=== PATIENT | female | born 1970 | race American Indian/Alaskan Native ===

== ENCOUNTER 2017-03-27 15:28 | Emergency (ER) | payer MEDICARE, OTHER ==
[2017-03-27 15:29] VITALS: BMI 28.1
[2017-03-27 15:38] VITALS: TEMP 98
[2017-03-27] MEDS ORDERED: Naproxen 550 mg Tab PO STA (16:51)
--- NOTE | 2017-03-27 16:54 | C.PDOC ---
History Of Present Illness Patient presents to ED c/o sore throat, swelling of "thing in the back of her throat", white tongue since yesterday. Patient denies fever, injuries, runny nose, ear pain, rash, sensation of throat closing up. She also admits to mild nonproductive cough. Time Seen by Provider: 03/27/17 16:05 Chief Complaint (Nursing): ENT Problem History Per: Patient History/Exam Limitations: None Onset/Duration Of Symptoms: Days Current Symptoms Are (Timing): Still Present Symptoms Have Been: Continuous Severity: Mild Past Medical History Reviewed: Historical Data, Nursing Documentation, Vital Signs Vital Signs: Last Vital Signs Temp 98 F 03/27/17 15:34 Pulse 75 03/27/17 17:17 Resp 18 03/27/17 17:17 BP 122/74 03/27/17 17:17 Pulse Ox 97 03/27/17 17:17 - Medical History PMH: COPD, Gastritis Surgical History: Endoscopy - [facility] Procedures CLOSED ENDOSCOPIC BIOPSY OF LARGE INTESTINE (05/06/15) COLONOSCOPY (05/29/13) ESOPHAGOGASTRODUODENOSCOPY [EGD] W/CLOSED BIOPSY (05/05/15) Family History: States: No Known Family Hx - Social History Hx Alcohol Use: No Hx Substance Use: No - Immunization History Hx Tetanus Toxoid Vaccination: No Hx Influenza Vaccination: No Hx Pneumococcal Vaccination: No Review Of Systems Except As Marked, All Systems Reviewed And Found Negative. Constitutional: Negative for: Fever, Chills ENT: Positive for: Throat Pain. Negative for: Nose Congestion Cardiovascular: Negative for: Chest Pain, Palpitations Respiratory: Positive for: Cough. Negative for: Shortness of Breath Gastrointestinal: Negative for: Nausea, Vomiting, Diarrhea Skin: Negative for: Rash Physical Exam - Physical Exam Appears: Well, Non-toxic, No Acute Distress, Other (speaking in full sentences) Skin: Normal Color, Warm, Dry, No Rash Oral Mucosa: Moist Tongue: Normal Appearing, Other (no thrush noted, no tongue lesions ) Lips: Normal Appearing, No Lesions Throat: No Erythema, No Exudate, No Drooling, Other (uvula midline, mildly swollen) Neck: Normal, Normal ROM, Supple Lymphatic: No Adenopathy, Other (thyroid nontender and normal in size) Cardiovascular: Rhythm Regular Respiratory: Normal Breath Sounds, No Rales, No Rhonchi, No Wheezing Neurological/Psych: Oriented x3 ED Course And Treatment O2 Sat by Pulse Oximetry: 98 (RA) Pulse Ox Interpretation: Normal Progress Note: Patient given PO Naprosyn, Prednisone for uvulitis/viral syndrome. She was given rxs for same + tessalon, and instructed to follow up with PMD/clinic in 1-2 days. She understands she should return to ED immediately if symptoms worsen. Reevaluation Time: 17:10 Reassessment Condition: Improved Disposition Counseled Patient/Family Regarding: Diagnosis, Need For Followup, Rx Given - Disposition Referrals: Deshawn Lai MD [Staff Provider] - Disposition: HOME/ ROUTINE Disposition Time: 17:10 Condition: STABLE Additional Instructions: FOLLOW UP WITH YOUR DOCTOR/CLINIC IN 1-2 DAYS USE MEDICATIONS DIRECTED RETURN TO ER IF SYMPTOMS WORSEN Prescriptions: Benzonatate [Tessalon Perles] 100 mg PO BID PRN #15 sgl PRN Reason: Cough Naproxen [Naprosyn Tab] 375 mg PO BID PRN #20 tab PRN Reason: pain predniSONE [predniSONE Tab] 40 mg PO DAILY #6 tab Instructions: Uvulitis (ED) Print Language: GUYANESE - POA Present On Arrival: None - Clinical Impression Clinical Impression: Uvulitis, Viral pharyngitis
[2017-03-27] MEDS ORDERED: Naproxen 550 mg Tab PO ONE (16:59)
[2017-03-27 17:18] VITALS: BP 122/74; PULSE 75; RESP 18
[2017-03-27 18:14] VITALS: O2SAT 98
== END 2017-03-27 17:20 | disposition home or self-care (01) ==
LOC: C.ER 15:28
DX: K12.2 Cellulitis and abscess of mouth (principal); J02.8 Acute pharyngitis due to other specified organisms

== ENCOUNTER 2017-04-18 14:44 | Emergency (ER) | payer MEDICARE, OTHER ==
[2017-04-18 14:47] VITALS: BMI 28.1
[2017-04-18 15:00] VITALS: RESP 20; TEMP 98
--- NOTE | 2017-04-18 15:23 | C.PDOC ---
History Of Present Illness Patient is a 47 y/o female that presents to the emergency department for evaluation of cough with yellow-brown sputum, congestion, chest discomfort, sore throat, and body aches for the last few days. Patient reports having pain to right side of abdomen when coughing. Notes being seen by PMD who prescribed cough medication, and Levaquin for 7 days. Patient states that she finished her dose of antibiotics 2 days ago but states her symptoms still persist. Otherwise , denies any sick contact, fever, chills, or any other associated symptoms at this time. Patient is requesting a CXR, notes she had "lung infection" 3 months ago. She has discharge papers from [facility] [place] from December and treated for Bronchitis. Patient has copy of recent bloodwork from 04/10/17 and all WNL. Time Seen by Provider: 04/18/17 15:09 Chief Complaint (Nursing): Cough, Cold, Congestion History Per: Patient History/Exam Limitations: no limitations Onset/Duration Of Symptoms: Days Current Symptoms Are (Timing): Still Present Reports Recently: Treated By A Physician Recent travel outside of the [place]: No Additional History Per: Patient Past Medical History Reviewed: Historical Data, Nursing Documentation, Vital Signs Vital Signs: Last Vital Signs Temp 98 F 04/18/17 14:59 Pulse 90 04/18/17 16:37 Resp 20 04/18/17 16:37 BP 110/79 04/18/17 16:37 Pulse Ox 96 04/18/17 16:37 - Medical History PMH: COPD, Gastritis Surgical History: Endoscopy - [facility] Procedures CLOSED ENDOSCOPIC BIOPSY OF LARGE INTESTINE (05/06/15) COLONOSCOPY (05/29/13) ESOPHAGOGASTRODUODENOSCOPY [EGD] W/CLOSED BIOPSY (05/05/15) Family History: States: Unknown Family Hx - Social History Hx Alcohol Use: No Hx Substance Use: No - Immunization History Hx Tetanus Toxoid Vaccination: No Hx Influenza Vaccination: No Hx Pneumococcal Vaccination: No Review Of Systems Except As Marked, All Systems Reviewed And Found Negative. Constitutional: Positive for: Other (body aches). Negative for: Fever, Chills ENT: Positive for: Nose Congestion, Throat Pain. Negative for: Ear Pain, Nose Discharge, Throat Swelling Cardiovascular: Positive for: Chest Pain (discomfort with cough). Negative for : Palpitations, Light Headedness Respiratory: Positive for: Cough, Shortness of Breath, Sputum. Negative for: Hemoptysis Gastrointestinal: Positive for: Abdominal Pain (with cough). Negative for: Nausea, Vomiting, Diarrhea Musculoskeletal: Positive for: Arm Pain, Other (body pain) Skin: Negative for: Rash Neurological: Negative for: Weakness, Numbness, Headache, Dizziness Physical Exam - Physical Exam Appears: Non-toxic, No Acute Distress Skin: Normal Color, Warm, Dry, No Rash Head: Atraumatic, Normacephalic Eye(s): bilateral: Normal Inspection Ear(s): Bilateral: Normal Nose: Normal Oral Mucosa: Moist Tongue: Other (white film) Lips: Normal Appearing Throat: Erythema (to pharynx and uvula, uvula midline), No Exudate, No Drooling , No Mass Neck: Normal ROM, Supple Chest: Symmetrical Cardiovascular: Rhythm Regular, No Murmur Respiratory: Normal Breath Sounds, No Rales, No Rhonchi, No Wheezing Gastrointestinal/Abdominal: Soft, No Tenderness, No Distention, No Guarding Extremity: Bilateral: Atraumatic, Normal ROM Neurological/Psych: Oriented x3, Normal Speech Gait: Steady ED Course And Treatment O2 Sat by Pulse Oximetry: 95 (on RA) Pulse Ox Interpretation: Normal - Radiology CXR: Interpreted by Me, Viewed By Me CXR Interpretation: Yes: No Acute Disease Medical Decision Making Medical Decision Makin47 year old with multiple symptoms, likely viral URI. Patient already completed 7 day course of Levaquin. Exam was unremarkable. Patient is requesting CXR and strep test. CXR, rapid strep test ordered and reviewed with negative findings. Provide copy of results to patient and she is asking for more antibiotics. Explain to patient it is unnecessary for additional antibiotics and recommend cough medicine and lozenges for symptoms. rx given and patient to follow up with PCP Disposition Counseled Patient/Family Regarding: Diagnosis, Need For Followup, Rx Given - Disposition Referrals: Deshawn Lai MD [Staff Provider] - Disposition: HOME/ ROUTINE Disposition Time: 16:22 Condition: STABLE Additional Instructions: Your strep test and Chest xray were normal. You have upper respiratory infection. Take Tylenol or Motrin alternating every 4 -6 hours for Fever 100.4F or higher. Rest and drink plenty of fluids. May use cool mist humidifier or vaporizer in room. Try taking over the counter antihistamine (Claritin, Abigail, Zyrtec), Decongestant or Cough medicine ( Mucinex) as needed every 6-8 hours. Follow up with your primary medical doctor for further evaluation. Prescriptions: Benzocaine/Menthol [Cepacol Sore Throat] 1 yvonne MM Q2 #30 yvonne Guaifenesin/Pseudoephedrne HCl [Mucinex D ER 600-60 mg Tablet] 1 each PO Q12 # 24 tab.er.12h Humidifier [Cool Mist Humidifier] 1 each MC DAILY #1 each Instructions: Upper Respiratory Infection (ED) - POA Present On Arrival: None - Clinical Impression Clinical Impression: Upper respiratory infection, Sore throat - PA / CULVERT INSTALLER / Resident Statement MD/DO has reviewed & agrees with the documentation as recorded. - Scribe Statement The provider has reviewed the documentation as recorded by the Scribyovani Stern All medical record entries made by the Scribe were at my direction and personally dictated by me. I have reviewed the chart and agree that the record accurately reflects my personal performance of the history, physical exam, medical decision making, and the department course for this patient. I have also personally directed, reviewed, and agree with the discharge instructions and disposition.
--- NOTE | 2017-04-18 15:57 | RAD ---
HISTORY: cough COMPARISON: No prior. TECHNIQUE: Chest PA and lateral FINDINGS: LUNGS: No active pulmonary disease. PLEURA: No significant pleural effusion identified. No pneumothorax apparent. CARDIOVASCULAR: Normal. OSSEOUS STRUCTURES: No significant abnormalities. VISUALIZED UPPER ABDOMEN: Normal. OTHER FINDINGS: Left hemidiaphragm asymmetrically elevated slightly IMPRESSION: No consolidation/no infiltrate.
[2017-04-18 16:38] VITALS: BP 110/79; PULSE 90
[2017-04-18 17:07] VITALS: O2SAT 95
== END 2017-04-18 16:44 | disposition home or self-care (01) ==
LOC: C.ER 14:44
DX: J06.9 Acute upper respiratory infection, unspecified (principal); J02.9 Acute pharyngitis, unspecified

== ENCOUNTER 2017-10-12 14:45 | Emergency (ER) | payer MEDICARE, OTHER ==
[2017-10-12 14:45] VITALS: BMI 28.1
[2017-10-12 15:08] VITALS: RESP 18
[2017-10-12 15:33] LABS: HCG,QUALITATIVE URINE NEGATIVE (NEGATIVE)
[2017-10-12 16:28] LABS: SQUAMOUS EPITHIAL < 1 /hpf (0-5); URINE BACTERIA RARE (<OCC); URINE BILIRUBIN NEGATIVE (NEGATIVE); URINE BLOOD NEGATIVE (NEGATIVE); URINE CLARITY Clear (Clear); URINE COLOR Yellow (YELLOW); URINE GLUCOSE (UA) NORMAL (Normal); URINE LEUKOCYTE ESTERASE NEG Leu/uL (Negative); URINE NITRATE NEGATIVE (NEGATIVE); URINE PROTEIN NEGATIVE (NEGATIVE)
[2017-10-12 16:56] VITALS: BP 127/77; PULSE 80; TEMP 97.9
[2017-10-12 16:57] VITALS: O2SAT 100
--- NOTE | 2017-10-12 16:57 | C.PDOC ---
History Of Present Illness Patient presents to ED c/o dysuria and pressure when she urinated and has BM. She also c/o vaginal itching and irritation. Patient has h/o SLE, COPD on plaquenil. She states she often has recurrent UTIs, and has also previously has yeast infections. Patient denies recent antibiotic use, fever, abdominal pain, concern for STDs, vaginal bleeding. Time Seen by Provider: 10/12/17 15:17 Chief Complaint (Nursing): Female Genitourinary History Per: Patient History/Exam Limitations: no limitations Onset/Duration Of Symptoms: Days Current Symptoms Are (Timing): Still Present Severity: Mild Abnormal Vaginal Bleeding: No Past Medical History Reviewed: Historical Data, Nursing Documentation, Vital Signs Vital Signs: Last Vital Signs Temp 97.9 F 10/12/17 16:54 Pulse 80 10/12/17 16:54 Resp 18 10/12/17 16:54 BP 127/77 10/12/17 16:54 Pulse Ox 100 10/12/17 16:58 - Medical History PMH: COPD, Gastritis Other PMH: SLE Surgical History: Endoscopy - [facility] Procedures CLOSED ENDOSCOPIC BIOPSY OF LARGE INTESTINE (05/06/15) COLONOSCOPY (05/29/13) ESOPHAGOGASTRODUODENOSCOPY [EGD] W/CLOSED BIOPSY (05/05/15) Family History: States: No Known Family Hx - Social History Hx Alcohol Use: No Hx Substance Use: No - Immunization History Hx Tetanus Toxoid Vaccination: No Hx Influenza Vaccination: No Hx Pneumococcal Vaccination: No Review Of Systems Except As Marked, All Systems Reviewed And Found Negative. Constitutional: Negative for: Fever, Chills Cardiovascular: Negative for: Chest Pain, Palpitations Respiratory: Negative for: Shortness of Breath Gastrointestinal: Negative for: Nausea, Vomiting, Abdominal Pain, Diarrhea Genitourinary: Positive for: Dysuria, Vaginal Discharge Skin: Negative for: Rash Physical Exam - Physical Exam Appears: Well, Non-toxic, No Acute Distress Skin: Normal Color, Warm, Dry Oral Mucosa: Moist Cardiovascular: Rhythm Regular Respiratory: Normal Breath Sounds, No Rales, No Rhonchi, No Wheezing Gastrointestinal/Abdominal: Normal Exam, Bowel Sounds, Soft, No Tenderness Pelvic: Normal External Exam, Normal Bimanual Exam, Vaginal Discharge (mild amount thick white discharge), No Cervical Motion Tenderness, No Cervix Open, Other (no vesicular lesions) ED Course And Treatment O2 Sat by Pulse Oximetry: 100 (RA) Pulse Ox Interpretation: Normal Progress Note: UA, Ucx ordered. UA (+) for rare bacteria - since patient is immunocompromised and symptomatic, will treat as UTI. Rxs for Ciprofloxacin and monistat vaginal cream. She was instructed to follow up with kitchen porter within 1 week. She understands she should return to ED if symptoms worsen. Disposition Counseled Patient/Family Regarding: Studies Performed, Diagnosis, Need For Followup, Rx Given - Disposition Referrals: Deshawn Lai MD [Staff Provider] - Disposition: HOME/ ROUTINE Disposition Time: 17:05 Condition: STABLE Additional Instructions: FOLLOW UP WITH YOUR OG/GAS LINE INSTALLER WITHIN 1 WEEK USE MEDICATIONS DIRECTED RETURN TO ER IF SYMPTOMS WORSEN Prescriptions: Ciprofloxacin [Cipro] 1 tab PO BID #14 tab Miconazole Nitrate [Monistat 3] 1 each VG DAILY #1 kit Instructions: Urinary Tract Infection in Women (ED) Forms: [facility] (Armenian) Print Language: FRISIAN - POA Present On Arrival: None - Clinical Impression Clinical Impression: UTI (urinary tract infection), Vaginal ninfa
== END 2017-10-12 17:11 | disposition home or self-care (01) ==
LOC: C.ER 14:45
DX: N39.0 Urinary tract infection, site not specified (principal); B37.3 Candidiasis of vulva and vagina; M32.9 Systemic lupus erythematosus, unspecified; J44.9 Chronic obstructive pulmonary disease, unspecified

== ENCOUNTER 2018-02-21 16:13 | Emergency (ER) | payer MEDICARE, OTHER ==
[2018-02-21 16:14] VITALS: BMI 28.1
[2018-02-21] MEDS ORDERED: Albuterol-Ipratrop 3 mg / 0.5 (3 ml) UD INH STA (16:47)
--- NOTE | 2018-02-21 16:51 | C.PDOC ---
History Of Present Illness 47 yo female w/PMHx of COPD come in for evaluation of nasal congestion, runny nose and productive cough with clear sputum gradually developed for past 1 week. Pt reports, since yesterday developed some chest tightness, use neb tx at home without improvement. Otherwise, pt denies high fever, chills, headache, dizziness, drooling, neck pian, CP, dypsnea, abd. pain, V/D, UTI sx. Ambulate to ED for evaluation, not in resp. distress. Time Seen by Provider: 02/21/18 16:25 Chief Complaint (Nursing): Cough, Cold, Congestion History Per: Patient History/Exam Limitations: no limitations Onset/Duration Of Symptoms: Days Current Symptoms Are (Timing): Still Present Past Medical History Reviewed: Historical Data, Nursing Documentation, Vital Signs Vital Signs: Last Vital Signs Temp 97.6 F 02/21/18 16:21 Pulse 70 02/21/18 16:21 Resp 20 02/21/18 16:21 BP 139/100 H 02/21/18 16:21 Pulse Ox 98 02/21/18 17:13 - Medical History PMH: No Chronic Diseases, COPD, Gastritis Surgical History: Endoscopy - [facility] Procedures CLOSED ENDOSCOPIC BIOPSY OF LARGE INTESTINE (05/06/15) COLONOSCOPY (05/29/13) ESOPHAGOGASTRODUODENOSCOPY [EGD] W/CLOSED BIOPSY (05/05/15) Family History: States: No Known Family Hx - Social History Hx Alcohol Use: No Hx Substance Use: No - Immunization History Hx Tetanus Toxoid Vaccination: No Hx Influenza Vaccination: No Hx Pneumococcal Vaccination: No Review Of Systems Constitutional: Negative for: Fever, Chills ENT: Positive for: Nose Congestion Respiratory: Positive for: Cough Gastrointestinal: Negative for: Nausea, Vomiting Neurological: Negative for: Headache Physical Exam - Physical Exam Appears: Well, Non-toxic, No Acute Distress Skin: Normal Color, Warm, Dry, No Rash Eye(s): bilateral: PERRL Nose: No Flaring, Discharge (B/L nasal congestion with scant clar rhinorrhea) Oral Mucosa: Moist, No Drooling Throat: No Erythema, No Drooling Neck: Trachea Midline, Supple Cardiovascular: Rhythm Regular, No Murmur, No JVD Respiratory: No Decreased Breath Sounds, No Accessory Muscle Use, No Stridor, Wheezing (scattered Right base expiratory wheezing) Gastrointestinal/Abdominal: Soft, No Tenderness, No Distention, No Guarding Extremity: Normal ROM, No Pedal Edema, No Deformity, No Swelling Neurological/Psych: Oriented x3, Normal Speech, Normal Motor, Normal Sensation, Normal Reflexes ED Course And Treatment O2 Sat by Pulse Oximetry: 98 (RA) Pulse Ox Interpretation: Normal - Radiology CXR: Interpreted by Me, Viewed By Me CXR Interpretation: Yes: No Acute Disease Progress Note: On re-eval, pt is afebrile, hemodynamicaly stable. Non-toxic. PulsEOx 98% RA. ENT: no acute findings, uvula midline, no edema. Neck: Supple , (-) meningeal sign. Lungs: CTA B/L, BS equal B/L. CVS: (+)S1S2, reg. Abd: soft, NT/ND, (-) guarding, (-) rebound. back: (-) CVA tenderness. CXR- nomral study. Pt has clinical findings c/w acute bronchitis, asthma exacerbation. Pt advised on course of ds. ref. to f/u with PMD in 2-3 days for re-eval. return if any new changes. Disposition Counseled Patient/Family Regarding: Studies Performed, Diagnosis, Need For Followup, Rx Given - Disposition Referrals: Deshawn Lai MD [Staff Provider] - Disposition: HOME/ ROUTINE Disposition Time: 17:30 Condition: STABLE Additional Instructions: Encourage fluids Take medication as prescribed nebulizer treatment every 4-6 hours Follow up with Pulmonology in 2-3 days for re-evaluation. Return to ED if any worsening or new changes. Prescriptions: Albuterol/Ipratropium [Duoneb 3 mg/0.5 mg (3 ml) UD] 3 ml IH Q6 #50 neb Loratadine [Claritin] 10 mg PO DAILY #14 tab Prednisone [Deltasone] 40 mg PO DAILY #8 tablet Instructions: Asthma in Adults, Acute Bronchitis Forms: [facility] (Yoruba) - Clinical Impression Clinical Impression: Asthma, Acute bronchitis - PA / EMBEDDED HARDWARE ENGINEER / Resident Statement MD/DO has reviewed & agrees with the documentation as recorded. - Scribe Statement The provider has reviewed the documentation as recorded by the Rickyibyovani Muniz All medical record entries made by the Scribe were at my direction and personally dictated by me. I have reviewed the chart and agree that the record accurately reflects my personal performance of the history, physical exam, medical decision making, and the department course for this patient. I have also personally directed, reviewed, and agree with the discharge instructions and disposition.
[2018-02-21] MEDS ORDERED: Albuterol-Ipratrop 3 mg / 0.5 (3 ml) UD ONE (17:05)
[2018-02-21 18:00] VITALS: BP 134/86; PULSE 86; RESP 18; TEMP 98; O2SAT 99
--- NOTE | 2018-02-21 18:00 | RAD ---
HISTORY: Cough COMPARISON: 04/18/2027 TECHNIQUE: Chest PA and lateral FINDINGS: LUNGS: No active pulmonary disease. PLEURA: No significant pleural effusion identified. No pneumothorax apparent. CARDIOVASCULAR: Normal. OSSEOUS STRUCTURES: No significant abnormalities. VISUALIZED UPPER ABDOMEN: Normal. OTHER FINDINGS: None. IMPRESSION: No active disease.
== END 2018-02-21 18:10 | disposition home or self-care (01) ==
LOC: C.ER 16:13
DX: J45.909 Unspecified asthma, uncomplicated (principal); J20.9 Acute bronchitis, unspecified

== ENCOUNTER 2018-03-30 11:59 | Emergency (ER) | payer MEDICARE, OTHER ==
[2018-03-30 12:00] VITALS: BMI 28.1
[2018-03-30 12:12] VITALS: TEMP 97.8; O2SAT 99
[2018-03-30 12:27] VITALS: RESP 18
[2018-03-30 13:48] LABS: SQUAMOUS EPITHIAL 6 /hpf (0-5); URINE BACTERIA RARE (<OCC); URINE BILIRUBIN NEGATIVE (NEGATIVE); URINE BLOOD NEGATIVE (NEGATIVE); URINE CLARITY Hazy (Clear); URINE COLOR Yellow (YELLOW); URINE GLUCOSE (UA) NORMAL (Normal); URINE LEUKOCYTE ESTERASE NEG Leu/uL (Negative); URINE PROTEIN NEGATIVE (NEGATIVE); URINE UROBILINOGEN NORMAL mg/dL (0.2-1.0)
--- NOTE | 2018-03-30 13:58 | RAD ---
Chest x-ray single frontal view History: Chest pain. Comparison: 02/21/2018 Findings: Mild venous congestion. Mild patchy increased markings in the right infrahilar region. Heart size within normal limits. Impression: Mild venous congestion. Mild patchy increased markings in the right infrahilar region.
[2018-03-30 13:59] LABS: BASO % 0.9 % (0.0-2.0); EOS # 0.2 K/uL (0.0-0.7); EOS % 3.9 % (0.0-4.0); HEMOGLOBIN 14.1 g/dL (11.0-16.0); LYMPH # 1.6 K/uL (1.0-4.3); LYMPH % 40.5 % (20.0-40.0); MEAN CELL VOLUME 92.2 fL (81.0-99.0); MEAN CORPUSCULAR HEMOGLOBIN 31.3 pg (27.0-31.0); MEAN PLATELET VOLUME 7.8 fL (7.2-11.7); MONO # 0.3 K/uL (0.0-0.8); MONO % 8.3 % (0.0-10.0); NEUT # 1.8 K/uL (1.8-7.0); NEUT % 46.4 % (50.0-75.0); NRBC % 0.1 % (0.0-2.0); RBC 4.5 Mil/uL (3.80-5.20); RED CELL DISTRIBUTION WIDTH 14.3 % (11.5-14.5)
[2018-03-30 14:04] LABS: PROTHROMBIN TIME 11.3 SECONDS (9.7-12.2)
[2018-03-30 14:12] LABS: ALB/GLOB RATIO 1.3 (1.0-2.1); ALBUMIN 4.3 g/dL (3.5-5.0); CALCIUM 9.4 mg/dl (8.6-10.4); GFR AFRICAN-AMERICAN > 60; GFR NON-AFRICAN AMERICAN 59
[2018-03-30 14:24] LABS: CK-MB 0.74 ng/mL (0.0-3.38)
[2018-03-30 14:45] LABS: ALT/SGPT 36 U/L (9-52); AST/SGOT 56 U/L (14-36); BLOOD UREA NITROGEN 13 mg/dL (7-17)
--- NOTE | 2018-03-30 15:32 | C.PDOC ---
History Of Present Illness 47-year-old male, PMHx includes COPD and Lupus, presents to the emergency department with complaints of recurring chest pain. Patient states she has been experiencing intermittent chest pain for "a long time." which she developed again last night, prompting visit. She states she has been seen by PMD Dr Lai for this complaint in the past, and she has had a "normal" stress test. Patient denies any nausea/vomiting, shortness of breath, fever, chills, back pain or any other associated symptoms. No other complaints at this time. Time Seen by Provider: 03/30/18 12:31 Chief Complaint (Nursing): Chest Pain History Per: Patient History/Exam Limitations: no limitations Onset/Duration Of Symptoms: Days Current Symptoms Are (Timing): Still Present Severity: Moderate Past Medical History Reviewed: Historical Data, Nursing Documentation, Vital Signs Vital Signs: Last Vital Signs Temp 97.8 F 03/30/18 15:41 Pulse 78 03/30/18 15:41 Resp 18 03/30/18 15:41 BP 155/100 H 03/30/18 15:41 Pulse Ox 99 03/30/18 16:22 - Medical History PMH: COPD, Gastritis Denies: Chronic Kidney Disease Surgical History: Endoscopy - [facility] Procedures CLOSED ENDOSCOPIC BIOPSY OF LARGE INTESTINE (05/06/15) COLONOSCOPY (05/29/13) ESOPHAGOGASTRODUODENOSCOPY [EGD] W/CLOSED BIOPSY (05/05/15) Family History: States: No Known Family Hx - Social History Hx Alcohol Use: No Hx Substance Use: No - Immunization History Hx Tetanus Toxoid Vaccination: No Hx Influenza Vaccination: No Hx Pneumococcal Vaccination: No Review Of Systems Constitutional: Negative for: Fever, Chills Cardiovascular: Positive for: Chest Pain. Negative for: Palpitations, Orthopnea , Edema, Light Headedness Respiratory: Negative for: Shortness of Breath Gastrointestinal: Negative for: Nausea, Vomiting Musculoskeletal: Negative for: Neck Pain, Back Pain Skin: Negative for: Rash Neurological: Negative for: Weakness, Numbness, Headache, Dizziness Physical Exam - Physical Exam Appears: Well, Non-toxic, No Acute Distress Skin: Normal Color, Warm, Dry Head: Atraumatic, Normacephalic Eye(s): bilateral: Normal Inspection, PERRL, EOMI Nose: Normal Oral Mucosa: Moist Lips: Normal Appearing Neck: Normal ROM Cardiovascular: Rhythm Regular, No Murmur Respiratory: Normal Breath Sounds, No Accessory Muscle Use Gastrointestinal/Abdominal: Soft, No Tenderness Extremity: Normal ROM, No Pedal Edema, No Deformity, No Swelling Neurological/Psych: Oriented x3, Normal Speech ED Course And Treatment - Laboratory Results Result Diagrams: 03/30/18 13:45 03/30/18 13:45 ECG Rhythm: Sinus Rhythm, ST/T Changes (non specific) ECG Interpretation: No Acute Changes Rate From EC O2 Sat by Pulse Oximetry: 99 (RA) Pulse Ox Interpretation: Normal - Other Rad CXR X-Ray: Viewed By Me, Read By Radiologist Interpretation: Creator : Dax Otto MD. Dictator : Dax Otto MD. Washer Assembler : Water Pollution Control Technician : Dax Otto MD. Approver2 : Report Date : 03/30/2018 13:56:35. My Comment : . Chest x-ray single frontal view. History: Chest pain. Comparison: 02/21/2018. Findings: Mild venous congestion. Mild patchy increased markings in the right infrahilar region. Heart size within normal limits. Impression: Mild venous congestion. Mild patchy increased markings in the right infrahilar region. Progress Note: Case was d/w patient's PMD and Adult Basic Education Instructor who confirms that patient was recently worked up for chest pain with normal stress test. agree with the plan to d/c patient home and he will see her in his office ib 2-3 days. Disposition - Disposition Referrals: Deshawn Lai MD [Staff Provider] - Disposition: HOME/ ROUTINE Disposition Time: 15:30 Condition: STABLE Additional Instructions: Follow up with within 1-2 days. Return to ED if feel worse. Instructions: Chest Pain (DC) Forms: [employer] (Divehi) - Clinical Impression Clinical Impression: Chronic chest pain - Scribe Statement The provider has reviewed the documentation as recorded by the Scribe (Kae Zapata) All medical record entries made by the Scribe were at my direction and personally dictated by me. I have reviewed the chart and agree that the record accurately reflects my personal performance of the history, physical exam, medical decision making, and the department course for this patient. I have also personally directed, reviewed, and agree with the discharge instructions and disposition.
[2018-03-30 16:04] VITALS: BP 155/100; PULSE 78
--- NOTE | 2018-04-02 18:31 | CARD ---
APPROVED REPORT EKG Measurement Heart [id number] MD [id number] <Conclusion> Normal sinus rhythm Nonspecific T wave abnormality Abnormal ECG
== END 2018-03-30 15:41 | disposition home or self-care (01) ==
LOC: C.ER 11:59
DX: G89.29 Other chronic pain (principal); R07.9 Chest pain, unspecified

== ENCOUNTER 2018-11-29 13:15 | Outpatient (CLI) | payer MEDICARE, OTHER | END 2018-11-29 13:16 | disposition home or self-care (01) | LOC: C.MAMMO 13:15 ==

== ENCOUNTER 2019-02-11 13:56 | Outpatient (CLI) | payer MEDICARE, OTHER | END 2019-02-11 13:57 | disposition home or self-care (01) | LOC: C.USIC 13:57 ==